=== PATIENT | female | born 1985 | race Caucasian/White ===

== ENCOUNTER 2018-04-19 15:16 | Inpatient (IN) | payer SELFPAY ==
[~2018-04-19 15:16] MED LIST: Dexamethasone 20 MG/5 ML VIAL ONE; Glycopyrrolate 0.2 MG/ML 5 ML SYRINGE ONE; ISOVUE-370 76%-LOCM 1 ML ONE; Lidocaine 1% PF 5 ML VIAL ONE; Ondansetron HCl/PF 4 MG/2 ML Vial ONE; PROPOFOL 200 MG/20 ML VIAL ONE; Succinylcholine Chloride 20 MG/ML 10 ml SYRINGE FS ONE
[2018-04-19 15:45] LABS: #Basophils 0.1 thou/uL (0.0-0.2); #Eosinphils 0.1 thou/uL (0.0-0.7); #Lymphocytes 2.2 thou/uL (1.20-3.40); #Monocytes 0.9 thou/uL (0.11-0.59); #Neutrophils 4.6 thou/uL (1.40-6.50); %Eosinophils 1.7 % (0.0-10.0); %Lymphocytes 27.4 % (21.0-51.0); %Monocytes 11.5 % (0.0-10.0); %Neutrophils 58.4 % (42.0-75.0); Hemoglobin 12.5 g/dL (12.0-16.0); Mean Corpuscular HGB CONC 33.3 g/dL (32.0-36.0); Mean Corpuscular Hemoglobin 30.1 pg (27.0-31.0); Mean Corpuscular Volume 90.3 fL (78.0-98.0); Mean Platelet Volume 7.3 fL (7.4-10.4); Platelet Count 203 thou/uL (130-400); RBC Distribution Width 12.5 % (11.5-14.5); Red Blood Cell (RBC) Count 4.16 mill/uL (4.20-5.40); White Blood Cell (WBC) Count 7.9 thou/uL (4.8-10.8)
[2018-04-19 15:46] LABS: Bilirubin Negative (Negative); Blood, Urine Negative (Negative); Clarity CLEAR (Clear); Glucose, Urine (Dipstick) Negative (Negative); Leukocyte Negative (Negative); Nitrite Negative (Negative); Protein, Urine (Dipstick) Negative (Neg-Trace); Specific Gravity, Urine 1.016 (1.002-1.036); Urobilinogen 0.2 mg/dL (0.2-1.0); pH, Urine 7.5 (5.0-9.0)
[2018-04-19 15:47] LABS: Pregnancy Test - Urine (BHCG) Negative (Negative); Pregu Control Background? CLEAR/WHITE (CLR/WHITE); Pregu Control Bar Appear? YES (CONTROL BAR); Specific Gravity 1.016 (1.002-1.036)
[2018-04-19] MEDS ORDERED: Ondansetron ODT 4 MG TAB ONE (15:58)
[2018-04-19] MEDS ORDERED: Ketorolac Tromethamine 30 MG/ML VIAL ONE (16:06)
[2018-04-19 16:08] LABS: ALT (SGPT) 18 U/L (8-55); AST (SGOT) 23 U/L (5-34); Albumin 3.9 g/dL (3.5-5.0); Alkaline Phosphatase 60 U/L (40-150); Anion Gap 11 mmol/L (10-20); BUN (Urea Nitrogen) 7 mg/dL (7.0-18.7); Bilirubin, Total 0.3 mg/dL (0.2-1.2); Calc. Creatinine Clearance 0 mL/min (70-130); Calcium 8.9 mg/dL (7.8-10.44); Carbon Dioxide 25 mmol/L (22-29); Chloride 106 mmol/L (98-107); Estimated GFR-MDRD Greater than 90; Glucose 85 mg/dL (70-105); Lipase 32 U/L (8-78); Potassium 4.1 mmol/L (3.5-5.1); Protein, Total 6.9 g/dL (6.0-8.3); Sodium 138 mmol/L (136-145)
--- NOTE | 2018-04-19 17:03 | ULT ---
GALLBLADDER ULTRASOUND: 04/19/18 HISTORY: Right upper quadrant pain. COMPARISON: None. TECHNIQUE: Utilizing a multihertz transducer, sonographic imaging of the right upper quadrant is performed in th e longitudinal and transverse plane. FINDINGS: The head of the pancreas has a normal echotexture. The remainder of the pancreas is obscured by bowel gas. Mild prominence of the inferior vena cava. The hepatic parenchyma has a normal echotexture. No hepatic masses or intrahepatic biliary dilatation . The contour of the hepatic margin is maintained. Right hepatic lobe measures 19.2 cm. Main portal vein is patent. Appropriate directional flow. Common bile duct diameter is 0.6 cm which is at the upper limits of normal. No sonographic evidence of cholelithiasis, gallbladder wall thickening or pericholecystic fluid. RIGHT KIDNEY: No hydronephrosis. Right kidney measures 11.7 x 4.2 x 4.8 cm. IMPRESSION: 1. Common bile duct diameter that is at the upper limits of normal. No sonographic evidence of c holelithiasis or cholecystitis. 2. Questionable prominence of the inferior vena cava. POS: [facility]
[2018-04-19] MEDS ORDERED: Fentanyl 100 MCG/2 ML VIAL ONE ×4 (17:16→20:13)
[2018-04-19] MEDS ORDERED: Bupivacaine/Epinephrine 0.25% 30 ML VIAL ONE (18:25)
[2018-04-19] MEDS ORDERED: Piperacillin/Tazobactam 4.5 GM VIAL ONE (18:33)
--- NOTE | 2018-04-19 18:41 | CT ---
ABDOMEN CT WITH CONTRAST PELVIC CT WITH CONTRAST 04/19/18 HISTORY: Abdominal pain, last week. Previous gastric surgery. COMPARISON: None. TECHNIQUE: Abdomen and pelvic CT performed with IV contrast. Enteric contrast is not administered. Coronal refor matted images are submitted for interpretation. FINDINGS: ABDOMEN CT: Lung bases are clear. Normal heart size. The visualized aorta is normal caliber. No periaortic fat s tranding. Symmetric attenuation of the psoas muscles. Intra and extrahepatic portal vein is patent. Liver, spleen, pancreas, and adrenal glands have appropriate enhancement. Gallbladder is unremarkable. No gastrohepatic, retrocrural or periportal lymphadenopathy. No mesenteric mass, lymphadenopathy, free air of free fluid. Symmetric enhancement of the kidneys. Bilaterally, no obstructive uropathy. Limited evaluation of the alimentary canal by the lack of oral contrast. No evidence of bowel obstruc tion. Ileocecal junction is normal. Scattered fecal material in a nondistended, nondilated colon. Sca ttered diverticula in the descending colon. No evidence of diverticulitis. Additional scattered diver ticula in the sigmoid colon, without definite evidence of diverticulitis. Emanating from the cecal ap ex is a blind ending tubular structure. The proximal aspect if fluid filled with some subtle mucosal enhancement. The proximal appendix measures 9 mm. No associated abscess or perforation. PELVIC CT: The uterus and adnexal structures are unremarkable. urinary bladder is unremarkable. There is free fl uid in the pelvis, likely physiologic. No mass, lymphadenopathy, or free air. No lytic or blastic lesions in the osseous structures. IMPRESSION: There is evidence for early appendicitis. Clinical correlation is essential. Results of the study discussed with Kala Candelario, 04/19/18 at 5:56 p.m. Code CR POS: [facility]
[2018-04-19] MEDS ORDERED: Meperidine HCl/PF 25 MG/ML VIAL ONE (19:59)
[2018-04-19] MEDS ORDERED: Ondansetron HCl/PF 4 MG/2 ML Vial IVP PRN ×3 (20:00→20:50)
[2018-04-19] MEDS ORDERED: Promethazine HCl 25 MG/ML VIAL SLOW IVP PRN ×2 (20:00→20:24)
[2018-04-19] MEDS ORDERED: Promethazine HCl 25 MG/ML VIAL IM PRN ×3 (20:00→20:50)
[2018-04-19] MEDS ORDERED: Meperidine HCl/PF 25 MG/ML VIAL SLOW IVP PRN (20:24)
[2018-04-19] MEDS ORDERED: Dextrose 50% Abboject 50 ML SYRINGE SLOW IVP PRN (20:50)
[2018-04-19] MEDS ORDERED: Ketorolac Tromethamine 30 MG/ML VIAL IVP PRN (20:50)
[2018-04-19] MEDS ORDERED: HYDROcodone/Acetaminophen 10/325 mg Tablet PO PRN (20:50)
[2018-04-19] MEDS ORDERED: Dextrose 5% in Water 1,000 ML IV PRN (20:50)
[2018-04-19] MEDS ORDERED: hydrALAZINE 20 MG/ML VIAL SLOW IVP PRN (20:50)
[2018-04-19] MEDS ORDERED: traMADol HCl 50 MG TAB PO PRN ×2 (20:50)
[2018-04-19] MEDS ORDERED: Acetaminophen 325 MG TAB PO PRN (20:50)
[2018-04-19 21:13] VITALS: BMI 24.5
[2018-04-19] MEDS: HYDROcodone/Acetaminophen 10/325 mg Tablet PO PRN (21:34)
[2018-04-19] MEDS: Sodium Chloride 0.9% 1,000 ML IV SCH (21:35)
[2018-04-19] MEDS: cefOXitin 2 GM in Sodium Chloride 0.9% 100 ML IVPB SCH (22:01)
[2018-04-19] MEDS: Famotidine/PF 20 mg/2ml Vial SLOW IVP SCH (22:05)
--- NOTE | 2018-04-20 00:39 | OP ---
PREOPERATIVE DIAGNOSIS: Acute appendicitis. POSTOPERATIVE DIAGNOSIS: Acute appendicitis. PROCEDURE: Laparoscopic appendectomy. SURGEON: David Villegas MD ANESTHESIA: General. ESTIMATED BLOOD LOSS: Minimal. COMPLICATIONS: None. SPECIMEN: Appendix. FINDINGS: Appendicitis. TECHNIQUE: The patient was taken to the operating room and placed supine on the table. After genera l anesthetic was obtained, Guzman catheter was placed. The abdomen is prepped and draped in a sterile fashion. Curved incision was made below the umbilicus. Cautery was used to dissect down to and sco re the fascia. Abdominal cavity entered bluntly using a Ava clamp. Holding stitch of PDS was plac ed on each side of the fascia. [place] trocar was placed. High-flow pneumoperitoneum was obtained. Suprapubic 5 mm port and left lower quadrant 5-mm port were placed under direct visualization. Cecum was rolled over to reveal acute appendicitis. A window was made at the base of the appendix and mes oappendix. Laparoscopic stapler was fired across the base of the appendix. A vascular reload fired across the mesoappendix. Appendix placed in an Endocatch bag and brought through the [place]. A blee nils on the staple line was clipped. The right lower quadrant and pelvis was irrigated using sterile solution. There was no damage to any intraabdominal structures. There was no evidence of perforatio n. All port sites were infiltrated using local anesthetic. All ports were removed under camera visu alization. Pneumoperitoneum was let down. PDS was used to close the fascial defect below the umbili cus. All incisions were irrigated and closed using 4-0 Monocryl and Dermabond. The patient went to recovery in stable condition. All instrument counts, needle counts, and lap counts were correct.
[2018-04-20] MEDS: HYDROcodone/Acetaminophen 10/325 mg Tablet PO PRN ×3 (01:33→10:59)
[2018-04-20] MEDS: cefOXitin 2 GM in Sodium Chloride 0.9% 100 ML IVPB SCH (05:46)
[2018-04-20] MEDS: Sodium Chloride 0.9% 1,000 ML IV SCH (06:20)
[2018-04-20 08:22] VITALS: BP 107/69; TEMP 98.4
--- NOTE | 2018-04-20 10:36 | DIS ---
DATE OF ADMISSION: 04/19/2018 DATE OF DISCHARGE: 04/20/2018 ADMIT DIAGNOSIS: Acute appendicitis. DISCHARGE DIAGNOSIS: Acute appendicitis. PROCEDURES: Laparoscopic appendectomy by Dr. Villegas without complication. CONDITION AT DISCHARGE: Improved. STAFF: Dr. David Villegas. HOSPITAL COURSE: On postop day 1, the patient is doing well. She is afebrile, tolerating regular fo od. She is discharged to home. A prescription given for Augmentin for 7 days. She is also given a prescription for [place] and Zofran. She will follow up with me in 2 weeks.
[2018-04-20] MEDS: Famotidine/PF 20 mg/2ml Vial SLOW IVP SCH (11:01)
--- NOTE | 2018-04-20 13:25 | HP ---
PREOPERATIVE DIAGNOSIS: Right lower quadrant pain. HISTORY OF PRESENT ILLNESS: This is a 33-year-old female who presents with diffuse abdominal pain de scribed as bloating, pressure, hurts all over, cannot get comfortable, associated with nausea, no vom iting, associated with anorexia, but no change in stools. No history of chronic abdominal pain. The only previous history is a tubal ligation after . Pain is more localized on the right side now, initially she had ultrasound to rule out gallbladder disease, which was negative. CT scan show s early appendicitis. She denies history of chronic abdominal pain, no previous history of inflammat ory bowel disease or Crohn's. PAST MEDICAL HISTORY: She denies. PAST SURGICAL HISTORY: Tubal. MEDICINES: None. ALLERGIES: No known drug allergies. SOCIAL HISTORY: No smoking, alcohol, or other drugs. REVIEW OF SYSTEMS: Ten-system review of systems otherwise negative as described above. PHYSICAL EXAMINATION: HEENT: Sclerae are anicteric. Oropharynx clear. NECK: No lymphadenopathy. CHEST: Clear. HEART: Regular rate and rhythm. ABDOMEN: Soft, tender in the right abdomen, guarding in the right lower quadrant. No diffuse perito john signs. No abdominal hernias. EXTREMITIES: No ischemia or edema to extremities. LABORATORY AND X-RAY FINDINGS: CT scan shows acute appendicitis. PLAN: Laparoscopic appendectomy. Risks, benefits, alternatives were discussed. She gives consent. We will do this today.
[2018-04-20] MEDS ORDERED: Famotidine 20 MG TAB PO SCH (21:00)
== END 2018-04-20 11:37 | disposition home or self-care (01) | DRG 343 ==
LOC: ERS 15:16 → SURG B 18:58
PROVIDERS: ADMIT Surgery; ATTEND Surgery
PROC: 0DTJ4ZZ Resection of Appendix, Percutaneous Endoscopic Approach (ICD-10-PCS; principal; 2018-04-19)
DX: K35.80 Unspecified acute appendicitis (principal); F41.9 Anxiety disorder, unspecified; F32.9 Major depressive disorder, single episode, unspecified; F17.210 Nicotine dependence, cigarettes, uncomplicated; Z98.51 Tubal ligation status
CPT/HCPCS: 36415; 74177; 76705; 80053; 81003; 81025; 83690; 85025; 96361; 96374; 96375; 96376; J0694; J1100; J1885; J2001; J2175; J2270; J2405; J2543; J2550; J2704; J3010; J7050; Q0162

== ENCOUNTER 2018-10-08 12:42 | Emergency (ER) | payer SELFPAY ==
[2018-10-08] MEDS ORDERED: Dexamethasone 4 MG TAB ONE (13:35)
[2018-10-08] MEDS ORDERED: Dexamethasone 1 MG TAB ONE (13:35)
== END 2018-10-08 13:50 | disposition home or self-care (01) ==
LOC: SCSER 12:42
DX: J02.9 Acute pharyngitis, unspecified (principal); F41.9 Anxiety disorder, unspecified; F17.210 Nicotine dependence, cigarettes, uncomplicated
CPT/HCPCS: 87081; 87430; 99283; J8540

== ENCOUNTER 2018-12-23 08:34 | Emergency (ER) | payer SELFPAY | END 2018-12-23 09:22 | disposition home or self-care (01) | LOC: SCSER 08:34 | DX: B34.9 Viral infection, unspecified (principal); F17.210 Nicotine dependence, cigarettes, uncomplicated; F41.9 Anxiety disorder, unspecified; F32.9 Major depressive disorder, single episode, unspecified | CPT/HCPCS: 99283 ==

== ENCOUNTER 2019-02-20 08:18 | Emergency (ER) | payer SELFPAY ==
[2019-02-20 08:44] LABS: Bilirubin Negative (Negative); Blood, Urine Trace (Negative); Clarity Clear (Clear); Glucose, Urine (Dipstick) Negative (Negative); Leukocyte Negative (Negative); Nitrite Negative (Negative); Protein, Urine (Dipstick) Negative (Neg-Trace); Urobilinogen 0.2 mg/dL (0.2-1.0); pH, Urine 7.5 (5.0-9.0)
[2019-02-20 08:47] LABS: Pregnancy Test - Urine (BHCG) Negative (Negative); Pregu Control Background? CLEAR/WHITE (CLR/WHITE); Pregu Control Bar Appear? YES (CONTROL BAR)
[2019-02-20] MEDS ORDERED: Ketorolac Tromethamine 60 MG/2 ML VIAL ONE (08:51)
[2019-02-20 08:52] LABS: Bacteria/HPF None Seen HPF (None Seen); RBC/HPF 0-3 HPF (0-3); Squamous Epithelial 0-3 HPF (0-3); WBC/HPF 0-3 HPF (0-3)
[2019-02-20 08:53] LABS: Hyaline Casts/LPF NONE SEEN LPF (0-3 Hyaline)
[2019-02-20] MEDS ORDERED: HYDROcodone/Acetaminophen 5/325 mg Tablet ONE ×2 (09:42→13:24)
[2019-02-20 10:53] LABS: #Basophils 0.1 thou/uL (0.0-0.2); #Eosinphils 0.1 thou/uL (0.0-0.7); #Lymphocytes 3.1 thou/uL (1.20-3.40); #Monocytes 0.6 thou/uL (0.11-0.59); #Neutrophils 4.6 thou/uL (1.40-6.50); %Basophils 1.2 % (0.0-1.0); %Eosinophils 1.3 % (0.0-10.0); %Lymphocytes 36.7 % (21.0-51.0); %Neutrophils 53.8 % (42.0-75.0); Hemoglobin 12.7 g/dL (12.0-16.0); Mean Corpuscular HGB CONC 32.3 g/dL (32.0-36.0); Mean Corpuscular Hemoglobin 29.4 pg (27.0-31.0); Mean Platelet Volume 8.2 fL (7.4-10.4); Platelet Count 201 thou/uL (130-400); RBC Distribution Width 13.6 % (11.5-14.5); Red Blood Cell (RBC) Count 4.32 mill/uL (4.20-5.40); White Blood Cell (WBC) Count 8.5 thou/uL (4.8-10.8)
[2019-02-20] MEDS ORDERED: Ondansetron PF 4 MG/2 ML Vial ONE (11:02)
[2019-02-20] MEDS ORDERED: Morphine 4 MG/ML VIAL ONE (11:03)
[2019-02-20 11:10] LABS: ALT (SGPT) 27 U/L (8-55); AST (SGOT) 28 U/L (5-34); Albumin 4.3 g/dL (3.5-5.0); Alkaline Phosphatase 43 U/L (40-150); Anion Gap 11 mmol/L (10-20); BUN (Urea Nitrogen) 8 mg/dL (7.0-18.7); Bilirubin, Total 0.4 mg/dL (0.2-1.2); Calc. Creatinine Clearance 0 mL/min (70-130); Calcium 9.8 mg/dL (7.8-10.44); Carbon Dioxide 26 mmol/L (22-29); Chloride 107 mmol/L (98-107); Estimated GFR-MDRD 89; Glucose 94 mg/dL (70-105); Potassium 4.1 mmol/L (3.5-5.1); Protein, Total 7.3 g/dL (6.0-8.3); Sodium 140 mmol/L (136-145)
--- NOTE | 2019-02-20 12:49 | ULT ---
ULTRASOUND PELVIC ULTRASOUND TRANSVAGINAL DOPPLER DUPLEX: DATE: 02/20/2019 HISTORY: 34-year-old female with left-sided pelvic pain. According to Dr. Reyes, beta hCG is negative. TECHNIQUE: Transabdominal transducer and endovaginal transducer used to visualize intrapelvic contents with cardoso scale, color-flow, and spectral analysis. FINDINGS: Moderate amount of homogeneously moderately hyperechoic free fluid within the pelvic cavity, mostly i n the cul-de-sac. This is consistent with blood. Retroverted uterus measures 8 x 5 x 6 cm. Endometrial stripe is 1 cm (10 mm) with small amount of heterogeneous echogenicity within it at the f undus. Right ovary: 4.2 x 2.5 x 2.7 cm. Multiple prominent follicular cysts. This includes a 1.7 x 1.7 x 1.5 cm septated cyst. Blood flow dem onstrated. Left ovary: 4.4 x 3.8 x 3.0 cm. Increased blood flow to left ovary, hyperreninemia. Within the left ovary, there is a 1.8 x 1.2 x 1.7 cm mass with thick, mildly hyperechoic rim, and irr egularly shaped, heterogeneously hypoechoic center. This may represent a recently ruptured hemorrhagic ovarian cyst. There are other prominent follicles in the left ovary. IMPRESSION: Moderate amount of hemoperitoneum in the pelvis. Because of beta-HCG is negative, this is favored to be due to a ruptured hemorrhagic left ovarian cyst (rather than ruptured ectopic ).
--- NOTE | 2019-02-20 13:04 | CT ---
CT ABDOMEN AND PELVIS WITH ORAL AND IV CONTRAST: HISTORY: Left lower quadrant pain. FINDINGS: Comparison is made with the exam of 04/19/2018. The lung bases are clear. The liver, spleen, pancreas, adrenal glands, and kidneys are normal. No c alcified gallstones are seen. No free air or lymphadenopathy is noted. The small bowel loops are no t abnormally dilated. Uterus and ovaries are present. There is a 2 cm cyst with enhancing granulated margins in the left o vary consistent with corpus luteal cysts. There is free fluid in the pelvis. The aorta is of normal caliber. No acute osseous abnormalities are seen. IMPRESSION: A 2 cm left ovarian corpus luteal cyst and free fluid in the pelvis. POS: OFF
[2019-02-20 13:54] LABS: Hemoglobin 11.5 g/dL (12.0-16.0)
[2019-02-22 16:26] LABS: Chlamydia by PCR Not Detected (NotDetected); GC by PCR Not Detected (NotDetected)
== END 2019-02-20 14:19 | disposition home or self-care (01) ==
LOC: SCSER 08:18
DX: N83.202 Unspecified ovarian cyst, left side (principal); F41.9 Anxiety disorder, unspecified; F32.9 Major depressive disorder, single episode, unspecified; F17.210 Nicotine dependence, cigarettes, uncomplicated
CPT/HCPCS: 74177; 76856; 80053; 81003; 81015; 81025; 85025; 87086; 87480; 87491; 87510; 87591; 87660; 96372; 96374; 96375; J1885; J2270; J2405

== ENCOUNTER 2019-05-12 10:02 | Emergency (ER) | payer SELFPAY ==
[2019-05-12] MEDS ORDERED: Ketorolac Tromethamine 30 MG/ML VIAL ONE (10:35)
[2019-05-12] MEDS ORDERED: Morphine 4 MG/ML VIAL ONE ×3 (10:35→12:14)
[2019-05-12 10:51] LABS: #Basophils 0.1 thou/uL (0.0-0.2); #Eosinphils 0.2 thou/uL (0.0-0.7); #Lymphocytes 2.9 thou/uL (1.20-3.40); #Monocytes 0.6 thou/uL (0.11-0.59); #Neutrophils 2.2 thou/uL (1.40-6.50); %Eosinophils 3.8 % (0.0-10.0); %Lymphocytes 47.9 % (21.0-51.0); %Monocytes 9.7 % (0.0-10.0); %Neutrophils 36.6 % (42.0-75.0); Hemoglobin 12.7 g/dL (12.0-16.0); Mean Corpuscular HGB CONC 32.1 g/dL (32.0-36.0); Mean Corpuscular Hemoglobin 29.8 pg (27.0-31.0); Mean Corpuscular Volume 92.9 fL (78.0-98.0); Mean Platelet Volume 8.2 fL (7.4-10.4); Platelet Count 184 thou/uL (130-400); Red Blood Cell (RBC) Count 4.27 mill/uL (4.20-5.40); White Blood Cell (WBC) Count 6.1 thou/uL (4.8-10.8)
[2019-05-12 10:55] LABS: Anion Gap 12 mmol/L (10-20); BUN (Urea Nitrogen) 9 mg/dL (7.0-18.7); CRP (Inflammatory) Less than 0.50 mg/dL (= or < 0.5); Calc. Creatinine Clearance 0 mL/min (70-130); Calcium 9.3 mg/dL (7.8-10.44); Carbon Dioxide 22 mmol/L (22-29); Chloride 109 mmol/L (98-107); Estimated GFR-MDRD Greater than 90; Glucose 92 mg/dL (70-105); Sodium 139 mmol/L (136-145)
[2019-05-12] MEDS ORDERED: Cyclobenzaprine 10 MG TAB ONE (12:25)
== END 2019-05-12 13:18 | disposition home or self-care (01) ==
LOC: SCSER 10:02
DX: S16.1XXA Strain of muscle, fascia and tendon at neck level, initial encounter (principal); S29.012A Strain of muscle and tendon of back wall of thorax, initial encounter; G44.209 Tension-type headache, unspecified, not intractable; F41.9 Anxiety disorder, unspecified; F32.9 Major depressive disorder, single episode, unspecified; F17.210 Nicotine dependence, cigarettes, uncomplicated; X58.XXXA Exposure to other specified factors, initial encounter; Z79.899 Other long term (current) drug therapy
CPT/HCPCS: 80048; 85025; 86140; 96374; 96375; 96376; J1885; J2270

== ENCOUNTER 2019-07-12 10:27 | Emergency (ER) | payer SELFPAY ==
[2019-07-12 10:52] LABS: Bilirubin Negative (Negative); Blood, Urine Trace (Negative); Clarity Clear (Clear); Glucose, Urine (Dipstick) Negative (Negative); Leukocyte Negative (Negative); Nitrite Negative (Negative); Protein, Urine (Dipstick) Negative (Neg-Trace); Urobilinogen 0.2 mg/dL (Less than 2)
[2019-07-12 10:54] LABS: Pregnancy Test - Urine (BHCG) Negative (Negative); Pregu Control Background? CLEAR/WHITE (CLR/WHITE); Pregu Control Bar Appear? YES (CONTROL BAR); Specific Gravity 1.015 (1.002-1.036)
[2019-07-12 10:57] LABS: Bacteria/HPF Rare-Few HPF (None Seen); RBC/HPF 0-3 HPF (0-3); WBC/HPF None Seen HPF (0-3)
--- NOTE | 2019-07-12 11:15 | CT ---
Exam: CT brain PROVIDED CLINICAL HISTORY: Headache COMPARISON: None FINDINGS: The ventricular system is normal in size and morphology. No evidence for intracranial hemorrhage or mass effect. The extracranial soft tissues and osseous structures demonstrate no evidence for an acute abnormality. IMPRESSION: No evidence for intracranial hemorrhage or mass effect.
[2019-07-12] MEDS ORDERED: methylPREDNISolone Sod Succ/PF 125 MG/2 ML VIAL ONE (11:19)
[2019-07-12] MEDS ORDERED: Ketorolac Tromethamine 60 MG/2 ML VIAL ONE (11:19)
== END 2019-07-12 11:27 | disposition home or self-care (01) ==
LOC: SCSER 10:27
DX: R51 Headache (principal); M54.2 Cervicalgia; M54.9 Dorsalgia, unspecified; F41.9 Anxiety disorder, unspecified; F32.9 Major depressive disorder, single episode, unspecified; Z87.891 Personal history of nicotine dependence; Z79.899 Other long term (current) drug therapy
CPT/HCPCS: 70450; 81003; 81015; 81025; 96372; J1885; J2930

== ENCOUNTER 2020-07-22 09:43 | Emergency (ER) | payer SELFPAY | END 2020-07-22 10:40 | disposition home or self-care (01) | LOC: ERS 09:43 | DX: K08.89 Other specified disorders of teeth and supporting structures (principal); F17.210 Nicotine dependence, cigarettes, uncomplicated; F41.9 Anxiety disorder, unspecified; F32.9 Major depressive disorder, single episode, unspecified; Z79.899 Other long term (current) drug therapy | CPT/HCPCS: 99282 ==

== ENCOUNTER 2020-08-26 08:21 | Emergency (ER) | payer SELFPAY ==
[2020-08-26] MEDS ORDERED: Ketorolac Tromethamine 30 MG/ML VIAL ONE (08:45)
--- NOTE | 2020-08-26 10:05 | RAD ---
LEFT ANKLE 3 VIEWS: Date: 08/26/2020 HISTORY: Patient rolled her ankle last night. FINDINGS: There are no signs of fracture, dislocation, or joint effusion. IMPRESSION: Negative left ankle. POS: [facility]
== END 2020-08-26 09:20 | disposition home or self-care (01) ==
LOC: ERS 08:21
DX: S93.402A Sprain of unspecified ligament of left ankle, initial encounter (principal); F32.9 Major depressive disorder, single episode, unspecified; F41.9 Anxiety disorder, unspecified; F17.210 Nicotine dependence, cigarettes, uncomplicated; X50.9XXA Other and unspecified overexertion or strenuous movements or postures, initial encounter; Z79.899 Other long term (current) drug therapy
CPT/HCPCS: 96372; J1885

== ENCOUNTER 2021-01-07 11:21 | Emergency (ER) | payer OTHER, SELFPAY ==
[2021-01-07] MEDS ORDERED: Ketorolac Tromethamine 30 MG/ML VIAL ONE (11:50)
[2021-01-07] MEDS ORDERED: Fentanyl 100 MCG/2 ML VIAL ONE (11:50)
[2021-01-07] MEDS ORDERED: Ondansetron PF 4 MG/2 ML Vial ONE (11:50)
[2021-01-07 12:05] LABS: #Basophils 0.1 thou/uL (0.0-0.2); #Eosinphils 0.3 thou/uL (0.0-0.7); #Lymphocytes 2.8 thou/uL (1.20-3.40); #Monocytes 0.7 thou/uL (0.11-0.59); #Neutrophils 3.2 thou/uL (1.40-6.50); %Basophils 1.1 % (0.0-1.0); %Eosinophils 3.6 % (0.0-10.0); %Lymphocytes 40.2 % (21.0-51.0); %Monocytes 10.2 % (0.0-10.0); Hemoglobin 12.8 g/dL (12.0-16.0); Mean Corpuscular HGB CONC 32.7 g/dL (32.0-36.0); Mean Corpuscular Hemoglobin 29.9 pg (27.0-31.0); Mean Corpuscular Volume 91.4 fL (78.0-98.0); Mean Platelet Volume 7.6 fL (7.4-10.4); Platelet Count 252 thou/uL (130-400); RBC Distribution Width 12.7 % (11.5-14.5); Red Blood Cell (RBC) Count 4.27 mill/uL (4.20-5.40); White Blood Cell (WBC) Count 7.1 thou/uL (4.8-10.8)
[2021-01-07 12:17] LABS: Bacteria/HPF None Seen HPF (None Seen); Bilirubin Negative (Negative); Blood, Urine Trace (Negative); Clarity Turbid (Clear); Glucose, Urine (Dipstick) Normal (Negative); Ketone, Urine Negative (Negative); Leukocyte Negative Leu/uL (Negative); Nitrite Negative (Negative); Protein, Urine (Dipstick) 20 mg/dL (Neg-Trace); Specific Gravity, Urine 1.029 (1.002-1.036); Squamous Epithelial 0-3 HPF (0-3); Urobilinogen Normal mg/dL (Less than 2); WBC/HPF 0-3 HPF (0-3)
[2021-01-07 12:18] LABS: BHCG - Serum Negative (NEGATIVE); Pregs Control Background? CLEAR/WHITE (CLR/WHITE); Pregs Control Bar Appear? YES (CONTROL BAR)
[2021-01-07 12:28] LABS: ALT (SGPT) 13 U/L (8-55); AST (SGOT) 18 U/L (5-34); Albumin 4.2 g/dL (3.5-5.0); Alkaline Phosphatase 47 U/L (40-110); Anion Gap 11 mmol/L (10-20); BUN (Urea Nitrogen) 16 mg/dL (7.0-18.7); Bilirubin, Total 0.3 mg/dL (0.2-1.2); Calc. Creatinine Clearance 0 mL/min (70-130); Calcium 9.3 mg/dL (7.8-10.44); Carbon Dioxide 25 mmol/L (22-29); Chloride 107 mmol/L (98-107); Globulin 2.8 g/dL (2.4-3.5); Glucose 100 mg/dL (70-105); Lipase 45 U/L (8-78); Potassium 4.3 mmol/L (3.5-5.1); Sodium 139 mmol/L (136-145)
== END 2021-01-07 12:46 | disposition home or self-care (01) ==
LOC: ERS 11:21
DX: R10.2 Pelvic and perineal pain (principal); F17.210 Nicotine dependence, cigarettes, uncomplicated; Z79.899 Other long term (current) drug therapy; M54.89 Other dorsalgia
CPT/HCPCS: 36415; 76856; 80053; 81003; 81015; 83690; 84703; 85025; 96374; 96375; J1885; J2405; J3010

== ENCOUNTER 2022-03-31 08:36 | Emergency (ER) | payer OTHER, SELFPAY ==
[2022-03-31 09:10] LABS: #Basophils 0.1 thou/uL (0.0-0.2); #Eosinphils 0.3 thou/uL (0.0-0.7); #Lymphocytes 3.1 thou/uL (1.20-3.40); #Monocytes 0.8 thou/uL (0.11-0.59); #Neutrophils 3.7 thou/uL (1.40-6.50); %Eosinophils 3.2 % (0.0-10.0); %Lymphocytes 39.5 % (21.0-51.0); %Monocytes 9.5 % (0.0-10.0); %Neutrophils 46.7 % (42.0-75.0); Hemoglobin 12.8 g/dL (12.0-16.0); Mean Corpuscular HGB CONC 32.7 g/dL (32.0-36.0); Mean Corpuscular Hemoglobin 30.3 pg (27.0-31.0); Mean Corpuscular Volume 92.6 fL (78.0-98.0); Mean Platelet Volume 6.6 fL (7.4-10.4); Platelet Count 284 thou/uL (130-400); RBC Distribution Width 12.2 % (11.5-14.5); Red Blood Cell (RBC) Count 4.23 mill/uL (4.20-5.40); White Blood Cell (WBC) Count 7.9 thou/uL (4.8-10.8)
[2022-03-31] MEDS ORDERED: Lorazepam 1 MG TAB ONE ×2 (09:22→10:39)
[2022-03-31 09:30] LABS: ALT (SGPT) 18 U/L (8-55); AST (SGOT) 19 U/L (5-34); Albumin 4.1 g/dL (3.5-5.0); Alkaline Phosphatase 65 U/L (40-110); Anion Gap 12 mmol/L (10-20); BUN (Urea Nitrogen) 9 mg/dL (7.0-18.7); Bilirubin, Total 0.4 mg/dL (0.2-1.2); Calc. Creatinine Clearance 0 mL/min (70-130); Calcium 9.7 mg/dL (7.8-10.44); Carbon Dioxide 24 mmol/L (22-29); Chloride 107 mmol/L (98-107); Globulin 2.9 g/dL (2.4-3.5); Glucose 98 mg/dL (70-105); Potassium 4.3 mmol/L (3.5-5.1); Sodium 139 mmol/L (136-145)
== END 2022-03-31 11:02 | disposition home or self-care (01) ==
LOC: ERS 08:36
DX: F41.0 Panic disorder [episodic paroxysmal anxiety] (principal); R07.89 Other chest pain; F17.210 Nicotine dependence, cigarettes, uncomplicated
CPT/HCPCS: 36415; 80053; 84443; 84484; 85025; 93005

== ENCOUNTER 2022-08-06 09:11 | Emergency (ER) | payer SELFPAY ==
[2022-08-06] MEDS ORDERED: Ketorolac Tromethamine 30 MG/ML VIAL ONE (09:39)
[2022-08-06] MEDS ORDERED: Acetaminophen 500 MG TAB ONE (10:15)
== END 2022-08-06 10:48 | disposition home or self-care (01) ==
LOC: ERS 09:11
DX: S60.221A Contusion of right hand, initial encounter (principal); W22.8XXA Striking against or struck by other objects, initial encounter; Z79.899 Other long term (current) drug therapy; F17.210 Nicotine dependence, cigarettes, uncomplicated
CPT/HCPCS: 96372; J1885

== ENCOUNTER 2023-06-08 00:31 | Emergency (ER) | payer SELFPAY ==
[2023-06-08] MEDS ORDERED: Ondansetron ODT 4 MG TAB ONE (00:55)
== END 2023-06-08 01:01 ==
LOC: ERS 00:31
DX: Z02.89 Encounter for other administrative examinations (principal)
CPT/HCPCS: 99283; Q0162